=== PATIENT | female | born 1975 | race Caucasian/White ===

== ENCOUNTER 2020-05-10 13:53 | Day surgery (SDC) | payer BC, OTHER ==
[2020-05-07 16:36] LABS: BASOPHILS % (AUTO) 1 % (0-1); EOSINOPHILS % (AUTO) 2 % (1-7); LYMPHOCYTES % (AUTO) 27 % (22-44); MEAN CORPUSCULAR HEMOGLOBIN 27.3 pg (27.0-34.8); MEAN CORPUSCULAR HGB CONC 32.7 g/dL (32.4-35.8); MEAN PLATELET VOLUME 7.6 fL (7.4-10.4); MONOCYTES % (AUTO) 8 % (2-9); NEUTROPHILS % (AUTO) 62 % (42-75); PLATELET COUNT 353 x10^3/uL (130-400); RED BLOOD COUNT 3.69 x10^6/uL (3.82-5.3); RED CELL DISTRIBUTION WIDTH 15.9 % (9.6-15.2)
[2020-05-07 16:50] LABS: ANION GAP 5 mmol/L (5-15); CALCIUM 8.8 mg/dL (8.5-10.1); CHLORIDE 106 mmol/L (98-107)
[2020-05-07 16:57] LABS: CREATININE 0.63 mg/dL (0.55-1.02)
[2020-05-07 17:46] LABS: MD SCAN
[~2020-05-10] VITALS: Ht 167.6 cm; Wt 92.4 kg
[~2020-05-10 13:53] MED LIST: CHLORHEXIDINE 15 ML UDC ONE; SERT100T32 PO
[2020-05-10] MEDS ORDERED: LACTATED RINGERS 1,000 ML IV SCH (14:30)
[2020-05-10] MEDS ORDERED: LIDOCAINE-MPF 1%, 2ML INFIL ONE (14:30)
[2020-05-10] MEDS ORDERED: CHLORHEXIDINE 15 ML UDC MM ONE (14:30)
[2020-05-10 15:05] LABS: HCG UR SG 1.025 (1.003-1.030)
[2020-05-10] MEDS ORDERED: VASOPRESSIN 20 UNIT/ML, 1ML ONE (15:54)
[2020-05-10] MEDS ORDERED: SODIUM CHLORIDE 0.9% 100 ML ONE (15:54)
[2020-05-10] MEDS ORDERED: MIDAZOLAM 1 MG/ML, 2ML ONE (15:58)
[2020-05-10] MEDS ORDERED: FENTANYL PF 250 MCG/5ML ONE (15:58)
[2020-05-10] MEDS ORDERED: DEXAMETHASONE 4 MG/ML, 1ML ONE (16:08)
[2020-05-10] MEDS ORDERED: CEFAZOLIN 1,000 MG ONE (16:08)
[2020-05-10] MEDS ORDERED: ONDANSETRON 2MG/ML, 2ML ONE (16:08)
[2020-05-10] MEDS ORDERED: METOCLOPRAMIDE 5 MG/ML, 2ML ONE (16:08)
[2020-05-10] MEDS ORDERED: PROPOFOL 50 ML ONE (16:32)
[2020-05-10] MEDS ORDERED: ACETAMINOPHEN 325 MG TABLET PO PRN (17:00)
[2020-05-10] MEDS ORDERED: PROMETHAZINE 25 MG/ML, 1ML IVPush PRN (17:00)
[2020-05-10] MEDS ORDERED: MEPERIDINE/PF 25MG/0.5ML IVPush PRN (17:00)
[2020-05-10] MEDS ORDERED: ONDANSETRON 2MG/ML, 2ML IVPush PRN (17:00)
[2020-05-10] MEDS ORDERED: hydrALAzine 20 MG/ML, 1ML IV PRN (17:00)
[2020-05-10] MEDS ORDERED: METHOCARBAMOL 1,000 MG in DEXTROSE 5% 100 ML IV PRN (17:00)
[2020-05-10] MEDS ORDERED: LORazepam 2 MG/ML, 1ML IVPush PRN (17:00)
[2020-05-10] MEDS ORDERED: OXYcodone 5 MG/5 ML ORAL.SOL UDC PO PRN (17:00)
[2020-05-10] MEDS ORDERED: FENTANYL PF 100 MCG/2ML IV PRN (17:00)
[2020-05-10] MEDS ORDERED: LABETALOL 5MG/ML, 20ML IV PRN (17:00)
[2020-05-10] MEDS ORDERED: EPHEDRINE 50 MG/ML, 1ML IVPush PRN (17:00)
[2020-05-10] MEDS ORDERED: HYDROmorphone 1 MG/ML, 1ML INJ IVPush PRN (17:00)
== END 2020-05-10 18:09 | disposition home or self-care (01) ==
LOC: OR 13:53
PROVIDERS: ATTEND Obstetrics & Gynecology
DX: N92.0 Excessive and frequent menstruation with regular cycle (principal); N81.2 Incomplete uterovaginal prolapse; N81.6 Rectocele; Z88.0 Allergy status to penicillin; Z72.89 Other problems related to lifestyle; Z87.891 Personal history of nicotine dependence; Z98.890 Other specified postprocedural states; Z79.899 Other long term (current) drug therapy; Z83.3 Family history of diabetes mellitus
CPT/HCPCS: 36415; 58563; 80048; 81025; 84702; 85025; 93005; J0690; J1100; J2250; J2405; J2704; J2765; J3010